=== PATIENT | female | born 1970 | race Caucasian/White ===

== ENCOUNTER 2017-11-24 19:39 | Emergency (ER) | payer OTHER ==
[2017-11-24 19:49] VITALS: BMI 19.5
[2017-11-24 19:52] VITALS: RESP 18; TEMP 97.6; O2SAT 98
--- NOTE | 2017-11-24 20:42 | ED PDOC ---
Arrival/HPI - General Historian: Patient <KayodeCarlos Jareth - Last Filed: 11/24/17 23:13> <Dileep Salas - Last Filed: 11/24/17 23:23> - General Chief Complaint: GI Problem Time Seen by Provider: 11/24/17 20:00 - History of Present Illness Narrative History of Present Illness (Text): 11/24/17 20:39 47yo female with no pmhx who present with complaint of nausea, multiple episodes of vomiting and diarrhea since this morning .She reports epigastric pain with vomiting. States it started after eating at a [employer] last night. Reports decreased appetite. Denies fever, chills, hematemesis, melena, urinary symptoms, chest pain, back pain, any other complaint. (Carlos Headley A) Past Medical History - Provider Review Nursing Documentation Reviewed: Yes - Infectious Disease Hx of Infectious Diseases: None - Psychiatric Hx Substance Use: No <Carlos Headley Jareth - Last Filed: 11/24/17 23:13> Family/Social History - Physician Review Nursing Documentation Reviewed: Yes Family/Social History: Unknown Family HX Smoking Status: Never Smoked Hx Alcohol Use: No Hx Substance Use: No <Carlos Headley Jareth - Last Filed: 11/24/17 23:13> Allergies/Home Meds <Carlos Headley Jareth - Last Filed: 11/24/17 23:13> <Dileep Salas - Last Filed: 11/24/17 23:23> Allergies/Adverse Reactions: Allergies No Known Allergies Allergy (Verified 11/24/17 19:49) Review of Systems - Physician Review All systems were reviewed & negative as marked: Yes - Review of Systems Constitutional: Normal Eyes: Normal ENT: Normal Respiratory: Normal Cardiovascular: Normal Gastrointestinal: Diarrhea, Nausea, Vomiting. absent: Abdominal Pain, Constipation, Hematochezia, Hematemesis Genitourinary Female: Normal Musculoskeletal: Normal Skin: Normal Neurological: Normal Endocrine: Normal Hemo/Lymphatic: Normal Psychiatric: Normal <Carlos Headley Jareth - Last Filed: 11/24/17 23:13> Physical Exam Vital Signs Reviewed: Yes Temperature: Afebrile Blood Pressure: Hypertensive Pulse: Regular Respiratory Rate: Normal Appearance: Positive for: Well-Appearing, Non-Toxic, Comfortable Pain Distress: None Mental Status: Positive for: Alert and Oriented X 3 - Systems Exam Head: Present: Atraumatic, Normocephalic Pupils: Present: PERRL Extroacular Muscles: Present: EOMI Conjunctiva: Present: Normal Mouth: Present: Moist Mucous Membranes Neck: Present: Normal Range of Motion Respiratory/Chest: Present: Clear to Auscultation, Good Air Exchange. No: Respiratory Distress, Accessory Muscle Use Cardiovascular: Present: Regular Rate and Rhythm, Normal S1, S2. No: Murmurs Abdomen: Present: Other (Soft). No: Tenderness, Distention, Peritoneal Signs, Rebound, Guarding, McBurney's Point Tender, Rovsing's Sign Present Back: Present: Normal Inspection Upper Extremity: Present: Normal Inspection. No: Cyanosis, Edema Lower Extremity: Present: Normal Inspection. No: Edema Neurological: Present: GCS=15, CN II-XII Intact, Speech Normal Skin: Present: Warm, Dry, Normal Color. No: Rashes Psychiatric: Present: Alert, Oriented x 3, Normal Insight, Normal Concentration <Carlos Headley - Last Filed: 11/24/17 23:13> Vital Signs Temp Pulse Resp BP Pulse Ox 11/24/17 23:13 18 156/96 H 98 11/24/17 23:10 90 18 156/96 H 98 11/24/17 19:52 97.6 F 95 H 18 186/101 H 98 Medical Decision Making <Carlos Headley - Last Filed: 11/24/17 23:13> <Dileep Salas - Last Filed: 11/24/17 23:23> ED Course and Treatment: 11/24/17 23:13 Pt presented for stated history. Labs was ordered and reviewed without leukocyte. On re evaluation pt states she feels much pt. She tolerated PO challenge Result was DW the pt and she was advised to follow BRAT diet Referred to the clinic. (KayodeHappiness A) - Lab Interpretations Lab Results: 11/24/17 20:32 11/24/17 20:32 Lab Results 11/24/17 22:22: Urine Color Yellow, Urine Appearance Clear, Urine pH 6.0, Ur Specific [place] 1.025, Urine Protein >=300 H, Urine Glucose (UA) Negative, Urine Ketones Negative, Urine Blood Small H, Urine Nitrate Negative, Urine Bilirubin Negative, Urine Urobilinogen 0.2, Ur Leukocyte Esterase Negative, Urine RBC 5 - 10, Urine WBC 0 - 2, Ur Epithelial Cells 4 - 5, Urine Bacteria Mod 11/24/17 20:32: PT 11.5, INR 1.01, APTT 29.9 11/24/17 20:32: Sodium 140, Potassium 4.3, Chloride 100, Carbon Dioxide 27, Anion Gap 17, BUN 13, Creatinine 0.5 L, Est GFR ( Amer) > 60, Est GFR ( Non-Af Amer) > 60, Random Glucose 160 H, Calcium 9.4, Total Bilirubin 0.6, AST 25, ALT 23, Alkaline Phosphatase 115, Total Protein 8.9 H, Albumin 4.4, Globulin 4.5, Albumin/Globulin Ratio 1.0 L, Amylase 109 11/24/17 20:32: WBC 8.2, RBC 4.81, Hgb 13.5, Hct 38.6, MCV 80.2, MCH 28.1, MCHC 35.0, RDW 13.4, Plt Count 290, MPV 10.9, Gran % 73.5 H, Lymph % (Auto) 22.1, [place] % (Auto) 3.3, Eos % (Auto) 1.0 L, Baso % (Auto) 0.1, Gran # 6.00, Lymph # ( Auto) 1.8, [place] # (Auto) 0.3, Eos # (Auto) 0.1, Baso # (Auto) 0.01 - Medication Orders Current Medication Orders: Discontinued Medications Famotidine (Pepcid) 20 mg IVP STAT STA Stop: 11/24/17 20:08 Last Admin: 11/24/17 20:19 Dose: 20 mg IVP Administration Document 11/24/17 20:19 SS (Rec: 11/24/17 20:19 [id number] Charges for Administration # of IVP Administrations 1 Ondansetron HCl (Zofran Inj) 4 mg IVP STAT STA Stop: 11/24/17 20:06 Last Admin: 11/24/17 20:18 Dose: 4 mg IVP Administration Document 11/24/17 20:18 SS (Rec: 11/24/17 20:18 [id number] Charges for Administration # of IVP Administrations 1 - PA / [employer] DEVELOPER / Resident Statement DEYA has reviewed & agrees with the documentation as recorded. DEYA has examined the patient and agrees with the treatment plan. <Dileep Salas - Last Filed: 11/24/17 23:23> Disposition/Present on Arrival - Present on Arrival Any Indicators Present on Arrival: No History of DVT/PE: No History of Uncontrolled Diabetes: No Urinary Catheter: No History of Decub. Ulcer: No History Surgical Site Infection Following: None - Disposition Have Diagnosis and Disposition been Completed?: Yes Disposition Time: 23:00 Patient Plan: Discharge <Carlos Headley - Last Filed: 11/24/17 23:13> <Dileep Salas - Last Filed: 11/24/17 23:23> - Disposition Diagnosis: Vomiting and diarrhea Disposition: HOME/ ROUTINE Condition: STABLE Discharge Instructions (ExitCare): Nausea and Vomiting, Adult (DC) Additional Instructions: Follow up with your doctor Follow BRAT diet (Banana, plain rice, apple sauce, tea) Return to ED for any new or worsening symptoms Prescriptions: Famotidine [Pepcid] 20 mg PO DAILY #15 tab Ondansetron ODT [Zofran ODT] 4 mg PO Q6 #7 odt Referrals: La Nena Blackman MD [Medical Doctor] - Follow up with primary Forms: [employer] (Congolese)
[2017-11-24 20:43] LABS: BASO # 0.01 K/mm3 (0.0-2.0); BASO % 0.1 % (0.0-3.0); EOS # 0.1 (0.0-0.7); GRAN % 73.5 % (50.0-68.0); HEMOGLOBIN 13.5 g/dL (12.0-16.0); LYMPH # 1.8 (1.2-3.4); LYMPH % 22.1 % (22.0-35.0); MEAN CELL VOLUME 80.2 fl (80.0-105.0); MEAN CORPUSCULAR HEMOGLOBIN 28.1 pg (25.0-35.0); MEAN PLATELET VOLUME 10.9 fl (7.0-11.0); MONO # 0.3 (0.1-0.6); MONO % 3.3 % (1.0-6.0); RBC 4.81 10^6/uL (3.5-6.1); RED CELL DISTRIBUTION WIDTH 13.4 % (11.5-14.5); WHITE BLOOD COUNT 8.2 10^3/ul (4.5-11.0)
[2017-11-24 20:47] LABS: INR 1.01; PARTIAL THROMBOPLASTIN TIME 29.9 Seconds (25.1-36.5); PROTHROMBIN TIME 11.5 SECONDS (9.4-12.5)
[2017-11-24 20:54] LABS: ALBUMIN 4.4 g/dL (3.0-4.8); ALT/SGPT 23 U/L (7-56); AMYLASE 109 U/L (35-125); AST/SGOT 25 U/L (14-36); BLOOD UREA NITROGEN 13 mg/dL (7-21); CALCIUM 9.4 mg/dL (8.4-10.5); GFR NON-AFRICAN AMERICAN > 60
[2017-11-24 22:34] LABS: URINE APPEARANCE CLEAR (CLEAR); URINE BILIRUBIN NEGATIVE (NEGATIVE); URINE BLOOD SMALL (NEGATIVE); URINE COLOR YELLOW (YELLOW); URINE GLUCOSE (UA) NEGATIVE (NEGATIVE); URINE LEUKOCYTE ESTERASE NEGATIVE Leu/uL (NEGATIVE); URINE PROTEIN >=300 mg/dL (<30 mg/dL); URINE UROBILINOGEN 0.2 E.U./dL (<1 E.U./dL)
[2017-11-24 22:38] LABS: URINE WBC 0 - 2 /hpf (0-6)
[2017-11-24 22:39] LABS: URINE BACTERIA MOD (NEG)
[2017-11-24 23:13] VITALS: BP 156/96; PULSE 90
== END 2017-11-24 23:13 | disposition home or self-care (01) ==
LOC: ED 19:39
DX: R11.10 Vomiting, unspecified (principal); R19.7 Diarrhea, unspecified
CPT/HCPCS: 80053; 81001; 82150; 85025; 85610; 85730; 96374; 96375; 99284; J2405